=== PATIENT | male | born 1930 | race Caucasian/White ===

== ENCOUNTER 2018-02-15 21:33 | Inpatient (IN) | payer MEDICARE ==
[2018-02-15 23:12] LABS: Troponin I 0.232 ng/mL (< 0.028)
[2018-02-15] MEDS ORDERED: Piperacillin/Tazobactam 3.375 GM VIAL ONE (23:16)
[2018-02-15] MEDS ORDERED: Sodium Chloride 0.9% 100 ML ONE (23:16)
[2018-02-15 23:37] LABS: Lactic Acid 2.7 mmol/L (0.5-2.2)
[2018-02-15] MEDS ORDERED: Levofloxacin 500 mg/D5W 100 ml Premix Bag ONE (23:37)
--- NOTE | 2018-02-15 23:47 | RAD ---
RADIOGRAPH CHEST 1 VIEW RADIOGRAPH ABDOMEN 2 VIEWS: Date: 02/15/18 Time: 10:55 p.m. HISTORY: 88-year-old male with abnormal bowel sounds (high pitched). Pneumonia. UTI. Sepsis. COMPARISON: Recent chest radiograph of 02/15/18 at 7:15 p.m. No prior KUB. FINDINGS: The image technique of the earlier chest radiograph and the current one is very different. This makes comparison somewhat difficult. The air space density in the right lower lung zone appears somewhat m ore dense on the current study. Again noted is the left parahilar spiculated lesion. Left apical pleu ral thickening is unchanged. No cardiomegaly or pulmonary edema. Prominent interstitial markings in the left lower lung zone, acute versus chronic. Calcified pleural plaque at the lateral aspect of the left lower chest. Blunting of the left lateral costophrenic angle. No pneumothorax. Large amount of bowel gas throughout the entire abdomen, including colon and small intestine. Heavy a therosclerotic calcification of iliac arteries and femoral arteries. No evidence of organomegaly. No pneumoperitoneum identified. No definite dilated small bowel loops are identified. IMPRESSION: 1. Nonspecific bowel gas pattern with a large amount of bowel gas throughout the small intestine and colon. Perhaps ileus. 2. No convincing evidence of small bowel obstruction. 3. Right lower lung zone infiltrate could represent acute pneumonia or aspiration, and may have worsened. 4. Unilateral left calcified pleural plaque may represent sequelae of prior hemothorax or prior empyema. 5. Interstitial densities in left lower lung zone may be chronic. 6. Left parahilar spiculated pulmonary mass. RED [] POS: [facility]
[2018-02-16] MEDS ORDERED: Labetalol HCl 100 MG/20 ML VIAL SLOW IVP PRN (02:49)
[2018-02-16 02:51] VITALS: BMI 17.3
[2018-02-16 04:03] LABS: Troponin I 0.517 ng/mL (< 0.028)
[2018-02-16] MEDS ORDERED: Enoxaparin Sodium 60 MG/0.6 ML SYRINGE SC SCH (04:30)
[2018-02-16 05:53] LABS: Troponin I 0.555 ng/mL (< 0.028)
[2018-02-16] MEDS ORDERED: Bisacodyl 5 MG TAB PO PRN (06:44)
[2018-02-16] MEDS ORDERED: Ondansetron HCl/PF 4 MG/2 ML Vial IVP PRN (06:45)
[2018-02-16] MEDS ORDERED: Mag-Al 1200 mg/1200 mg/30 ML UDCUP PO PRN (06:45)
[2018-02-16] MEDS ORDERED: Loratadine 10 MG TAB PO PRN (06:45)
[2018-02-16] MEDS ORDERED: Senokot 8.6 MG TAB PO PRN (06:45)
[2018-02-16] MEDS ORDERED: Nitroglycerin 0.4 MG TAB (25 Tab Bottle) SL PRN (06:45)
[2018-02-16] MEDS ORDERED: Eucerin (Mineral Oil/Petrolatum,White) 30 gm Jar TOP PRN (06:45)
[2018-02-16] MEDS ORDERED: Diabetic Tussin 200 MG/10 ML UDCUP PO PRN (06:45)
[2018-02-16] MEDS ORDERED: Acetaminophen 325 MG TAB PO PRN (06:45)
[2018-02-16] MEDS ORDERED: Sodium Chloride 0.65% Nasal 44 ML BOT EA NARE PRN (06:45)
[2018-02-16] MEDS ORDERED: Artificial Tears 18 DROP/0.9 ML EA EYE PRN (06:45)
[2018-02-16] MEDS ORDERED: Milk Of Magnesia 30 ML UDCUP PO PRN (06:45)
[2018-02-16] MEDS ORDERED: hydrALAZINE 20 MG/ML VIAL SLOW IVP PRN (06:45)
[2018-02-16] MEDS ORDERED: Chloraseptic Spray 180 ml Bottle PO PRN (06:45)
[2018-02-16] MEDS ORDERED: Ondansetron ODT 4 MG TAB PO PRN (06:45)
[2018-02-16] MEDS ORDERED: Loperamide HCl 2 MG CAP PO PRN (06:45)
[2018-02-16] MEDS ORDERED: Aspirin 325 mg Enteric Coated Tablet PO SCH (09:00)
[2018-02-16] MEDS ORDERED: Metoprolol Tartrate 25 MG TAB PO SCH (09:00)
[2018-02-16] MEDS: Famotidine/PF 20 mg/2ml Vial SLOW IVP SCH (09:00)
--- NOTE | 2018-02-16 12:36 | HP ---
PRIMARY CARE PHYSICIAN: Lakshmi Patel M.D. REASON FOR ADMISSION: Aspiration pneumonia, demand ischemia of myocardium. HISTORY OF PRESENT ILLNESS: An 88-year-old male who lives at long-term. He has out of hospital DNR paper work at long-term. The patient was initially taken to [facility] for shortness of breath. At [facility], his initial blood pressure was 241/115. As per report from long-term, the patient had altered mental status since yesterday. The patient was having gurgling sound whenever he was breathing and his oxygen saturation was also low. At [facility], his saturation was 82 % on 2 liters oxygen. As per report, the patient had aspiration at long-term. Unfortunately, this patient is not able to provide any good history, so most likely history obtained from reviewing medical record. When I saw this patient today, he was afebrile. He was saturating with a 2.5 liters oxygen normal. He was hypertensive. He was able to communicate in mumbling pattern, so unable to understand well. His routine blood tests showed significantly abnormal troponin, even in the non-STEMI range. He had leukocytosis and lactic acidosis. PAST MEDICAL HISTORY: Hypertension; dyslipidemia; coronary artery disease; Alzheimer dementia; left carotid artery occlusion; protein-calorie malnutrition , moderate; history of cerebrovascular accident. PAST SURGICAL HISTORY: Right carotid endarterectomy, CABG in 2013. PAST PSYCHIATRY HISTORY: Reviewed and negative. SOCIAL HISTORY: The patient lives at long-term. He is a former smoker. He currently denies any tobacco, alcohol or illicit drug abuse. FAMILY HISTORY: As per previous report, the patient is from long-term. His nephew, Navdeep Mix, is medical power of trade mark attorney. No history of tobacco, alcohol or illicit drug abuse at this point. He is a previous smoker. ALLERGIES: CODEINE, ARICEPT. CURRENT HOME MEDICATIONS: Lipitor 20 mg p.o. daily, lisinopril 20 mg p.o. daily , metoprolol 50 mg p.o. b.i.d. EMERGENCY ROOM COURSE: The patient has received levofloxacin, Zosyn, vancomycin , and IV fluid. REVIEW OF SYSTEMS: All review of systems tried to review with the patient, but unable to review at this point because of altered mental status. PHYSICAL EXAMINATION: VITAL SIGNS: On arrival, blood pressure 147/84, pulse 96, respiratory rate 30, temperature 97.7, saturation 100% on 4 liters oxygen. GENERAL: The patient is currently alert, awake. Follows simple command. No obvious acute distress. HEAD: Normocephalic, atraumatic. EYES: Pupils round, reactive to light. Extraocular muscle intact. ENT: Oropharynx within normal limits. No pharyngeal erythema, no exudate. NECK: Supple, no JVD, no thyromegaly, no carotid bruit. LUNGS: Coarse breath sounds bilaterally. Air entry reduced basally. CARDIAC: S1, S2 appears regular. No murmur, no gallop, no rub. ABDOMEN: Soft, bowel sounds present, nontender, nondistended. No organomegaly , no mass, no suprapubic tenderness. BACK: Unremarkable, no CVA tenderness. EXTREMITIES: Upper extremity: Passive movement of all joints are normal. Lower extremities: No edema. Good distal pulsation. SKIN: No skin rash. HEMATOLOGICAL: No lymphadenopathy. NEUROLOGIC: The patient is hard of hearing, alert, oriented x2, moves all 4 limbs. No focal neurological deficit noted. SIGNIFICANT LABORATORY DATA: EKG showing first degree AV block, left atrial enlargement, nonspecific ST-T changes. X-ray abdomen showed nonspecific bowel gas pattern, right lower lobe infiltration. Calcified pleural plaque, left perihilar spiculated pulmonary mass. X-ray chest reported as spiculated mass in left hilar region. Interstitial opacity in right perihilar location consistent with aspiration pneumonia, pleural and parenchymal thickening. Recently, the patient had CT angiography which showed a 4 cm spiculated mass in left upper lobe, cholelithiasis. CBC: WBC 13.0, hemoglobin 16.7, platelet 288. BMP: Sodium 132, potassium 4.9 , chloride 94, carbon dioxide 28, anion gap 15, BUN 21, creatinine 1.03, glucose 116, calcium 9.7, lactic acid 1.6. LFT: AST 24, ALT 21, alkaline phosphatase 145, albumin 4.4, CK-MB 2.0. Troponin I 0.015, then 0.232 and then 0.517. Procalcitonin 0.27. Urinalysis unremarkable. ASSESSMENT AND PLAN: 1. Aspiration pneumonia. The patient had gurgling sound in his chest when he was breathing. He has wheezing, coarse breath sounds. His chest x-ray also supports right-sided interstitial opacity and right lower lobe infiltration. We will treat as aspiration pneumonia. We will start vancomycin, Zosyn, and levofloxacin. Probiotics with Florastor 250 mg p.o. daily, DuoNeb therapy q.6 hourly p.r.n. basis. 2. A 4 cm spiculated lung mass. This patient had CT angiography in 08/2016, at that time this was diagnosed. In the medical record, I could not see any consultation done for Pulmonary. Anyway, this patient is not a good candidate for any kind of surgical intervention. The patient will need consult with pulmonology before discharge. 3. Demand ischemia of myocardium. This patient does not have any chest pain. His troponin is gradually increasing. We will obtain echocardiography. Cardiology will be consulted. We will continue aspirin 325 mg p.o. daily, Lipitor 20 mg p.o. at bedtime, metoprolol 50 mg twice daily and lisinopril 20 mg p.o. daily. Further investigation will defer to Cardiology. 4. Hypertensive urgency, resolved. The patient's blood pressure was high at the [facility], currently blood pressure improved. 5. Lactic acidosis likely related with underlying infection. We will repeat lactic acid level tomorrow. 6. Dyslipidemia. Continue Lipitor 20 mg p.o. at bedtime and check lipid profile tomorrow morning. 7. Alzheimer dementia, supportive care. 8. Deep venous thrombosis prophylaxis, Lovenox 40 mg subcu daily. 9. Gastrointestinal prophylaxis, Pepcid 20 mg IV b.i.d. 10. Code status: The patient has out of hospital DNR. The patient wanted to continue DNR status 11. Oropharyngeal dysphagia. The patient is currently confused and that is why we will keep him n.p.o. and speech evaluation will be done. Based on speech therapy, we will start modify diet. Disposition plan based on clinical course. Once patient is stable at that point , we will discharge him back to assisted home. JAYSHREE
[2018-02-16] MEDS: Piperacillin/Tazobactam 3.375 GM in Sodium Chloride 0.9% 100 ML IVPB SCH ×3 (12:40→22:41)
[2018-02-16] MEDS: Lisinopril 10 MG TAB PO SCH (12:41)
[2018-02-16] MEDS: Metoprolol Tartrate 50 MG TAB PO SCH ×2 (12:42→20:59)
[2018-02-16] MEDS: Aspirin 325 mg Enteric Coated Tablet PO SCH (12:52)
--- NOTE | 2018-02-16 15:20 | CON ---
DATE OF CONSULTATION: 02/16/2018 PRIMARY DIETITIAN ASSISTANT: Dr. Adilson Alfonso. REASON FOR CONSULTATION: Elevated troponin. HISTORY OF PRESENT ILLNESS: Mr. Mix is a very pleasant 88-year-old white gentleman who comes to the hospital for aspiration pneumonia. He was admitted and started on IV antibiotics and troponins w ere drawn were mildly elevated, so Cardiology has been consulted for this. He does have a history of coronary artery disease with bypass in 2013, done by Dr. Suresh. He had a MARSHALL to a heavily calcifie d distal LAD, reverse vein graft to first diagonal, another vein to an OM1 and another vein to the PD A. He comes in for altered mentation for the last couple days and what was thought to be aspiration. He was brought to the ER and was found to have low saturations in the low 80s. He was started on I V Demadex and oxygen. He denies any chest pain, tightness, or pressure. PAST MEDICAL HISTORY: 1. Hypertension. 2. Hyperlipidemia. 3. Coronary artery disease. 4. Status post coronary artery bypass graft x4. 5. Alzheimer dementia. 6. Left carotid artery occlusion. 7. Protein calorie malnutrition. 8. CVA in the past. PAST SURGICAL HISTORY: 1. Right carotid endarterectomy. 2. CABG in 2013 as above. SOCIAL HISTORY: Lives at group home. Former smoker. No tobacco or drugs. FAMILY HISTORY: Noncontributory. OUTPATIENT MEDICATIONS: Include; 1. Lipitor 20 mg a day. 2. Lisinopril 20 mg. 3. Metoprolol 50 mg b.i.d. 4. Aspirin 81 a day. ALLERGIES: CODEINE and ARICEPT. REVIEW OF SYSTEMS: A 12-point review of systems was done and is all negative unless stated in the hi story of present illness. PHYSICAL EXAMINATION: VITAL SIGNS: Temperature 97.0, pulse 86, respiratory rate 19, satting 95% on 2-1/2 liters, blood pre ssure 164/78. GENERAL: Awake, alert, oriented x3, in no distress. HEENT: Normocephalic, atraumatic. NECK: Supple. LUNGS: Clear. CARDIOVASCULAR: S1, S2, no S3, S4, no murmurs or rubs. ABDOMEN: Soft, positive bowel sounds. EXTREMITIES: No edema. SKIN: Warm and dry. LABORATORY WORK: Reviewed. White count of 13, hemoglobin 16, hematocrit 52, platelet count 288. Ch emistries: Sodium 132, potassium 4.9, chloride of 94, carbon dioxide of 28, lactic acid was 1.6 init ially 2.7, troponin went from 0.01 to 0.23 to 0.51 to 0.55. Normal CK-MB. UA with 100 proteins, tra ce blood. EKG was reviewed, no ischemic changes. Acute abdominal series showed nonspecific bowel gas pattern with no evidence of small bowel obstructi on. ASSESSMENT: 1. Non-ST elevation myocardial infarction. Likely demand ischemia. He is asymptomatic from the car diac standpoint. 2. Possible aspiration pneumonia. 3. Normal LV function on echo in 2016. PLAN: 1. Most likely demand ischemia from his aspiration process. We will get an echocardiogram to evalua te LV function. 2. No invasive interventions planned at this time. He is DNR and he wishes to continue this way. E booker if he was having an AL, he does not want to have any invasive interventions. 3. I would not recommend any anticoagulation at this point as this is unlikely to be an acute holguin ry syndrome. Thank you for letting us participate in the care of your patient. We will follow.
[2018-02-16 20:10] LABS: Hemoglobin 14.3 g/dL (14.0-18.0); Platelet Count 263 thou/uL (130-400)
[2018-02-16] MEDS: Atorvastatin Calcium 20 MG TAB PO SCH (20:59)
--- NOTE | 2018-02-16 21:08 | CON ---
DATE OF CONSULTATION: 02/16/2018 HISTORY: Mr. Mix is an 88-year-old male who lives in a chcf. He apparently was referred for an abnormal chest radiograph. He lives in a fulltime care environment with dementia. Surprisingly, he is oriented to person, place and day when I evaluated him today. He answered questi ons very quickly, but really could not tell me why he was here. PAST MEDICAL HISTORY: Remarkable for hypertension, lipid disorder, coronary artery bypass grafting x 4, carotid disease, CVA in the past, carotid endarterectomy on the right and coronary artery bypass g rafting in 2012. SOCIAL HISTORY: He is a former smoker, nondrinker, does not use drugs. ALLERGIES: He has no drug allergies reported. FAMILY HISTORY: Negative for lung disease in early age. MEDICATIONS: Prior to admission, he was on Lipitor, lisinopril, metoprolol, aspirin. ALLERGIES: He reports allergies to CODEINE and Aricept. REVIEW OF SYSTEMS: A 10-point review of systems otherwise negative. He says he feels fine. PHYSICAL EXAMINATION: GENERAL: He is in no distress. VITAL SIGNS: He is afebrile. Blood pressure 164/78, respiratory rate 17, oximetry is 95% on 2 liter s. HEENT: Pupils react. Sclerae anicteric. Extraocular movements are full. NECK: Supple. LUNGS: Remarkable for crackles at his lung bases. HEART: Regular rhythm. ABDOMEN: Soft and nontender. EXTREMITIES: Without clubbing, cyanosis, or edema. Overall, he appears cachectic and weak. X-RAY FINDINGS: Chest radiograph shows pleural calcifications consistent with pleural plaques. He has findings suggestive of a lung mass on the left. It must be noted that last year, he had a lung mass seen on CT angiogram done with 09/01/2016 visit. This test was done as ordered by Dr. Page in [place]. It is unclear whether or not this has ev er been addressed. LABORATORY DATA: White count 13, hemoglobin 16.7, platelets 288. Sodium 132, potassium 4.7, chlorid e 94, bicarbonate 28, BUN 21, creatinine 1.03. IMPRESSION: 1. ? Aspiration. Chest radiograph does not show anything suggestive of pneumonia. 2. Lung mass. 3. Dementia. PLAN: I will be happy to follow with the other physicians caring for him. In my opinion, he probabl y is pretty close to his baseline. Surgical approach to the treatment of his lung mass would not be in his best interest in my opinion. There was no family available to discuss this with. Pulmonary consult is a 50-minute consult, 50% of the time was spent in the unit coordinating care.
[2018-02-16] MEDS ORDERED: Vancomycin HCl 750 MG in Sodium Chloride 0.9% 250 ML 250 ML IVPB SCH (23:00)
[2018-02-17] MEDS: Piperacillin/Tazobactam 3.375 GM in Sodium Chloride 0.9% 100 ML IVPB SCH ×3 (05:23→17:46)
[2018-02-17 05:42] LABS: #Eosinphils 0.1 thou/uL (0.0-0.7); #Lymphocytes 1.1 thou/uL (1.20-3.40); #Monocytes 1.1 thou/uL (0.11-0.59); #Neutrophils 11.2 thou/uL (1.40-6.50); %Basophils 0.2 % (0.0-1.0); %Eosinophils 0.7 % (0.0-10.0); %Lymphocytes 8.2 % (21.0-51.0); %Monocytes 8.2 % (0.0-10.0); %Neutrophils 82.8 % (42.0-75.0); Hemoglobin 14.4 g/dL (14.0-18.0); Mean Corpuscular HGB CONC 32.5 g/dL (32.0-36.0); Mean Corpuscular Hemoglobin 30.1 pg (27.0-31.0); Mean Corpuscular Volume 92.6 fL (78.0-98.0); Mean Platelet Volume 7.7 fL (7.4-10.4); Platelet Count 255 thou/uL (130-400); RBC Distribution Width 12.1 % (11.5-14.5); White Blood Cell (WBC) Count 13.5 thou/uL (4.8-10.8)
[2018-02-17 06:14] LABS: ALT (SGPT) 12 U/L (8-55); AST (SGOT) 22 U/L (5-34); Albumin 3.7 g/dL (3.4-4.8); Alkaline Phosphatase 83 U/L (40-150); Anion Gap 10 mmol/L (10-20); BUN (Urea Nitrogen) 17 mg/dL (8.4-25.7); Bilirubin, Total 0.9 mg/dL (0.2-1.2); Calc. Creatinine Clearance 42 mL/min (70-130); Carbon Dioxide 27 mmol/L (23-31); Cardiac Risk 3.2 (Less than 4.5); Chloride 97 mmol/L (98-107); Cholesterol 168 mg/dl (< 200 Desired); Estimated GFR-MDRD 77; Globulin 2.4 g/dL (2.4-3.5); Glucose 101 mg/dL (83-110); HDL Cholesterol 53 mg/dL (>60 Neg Risk); LDL Cholesterol, Calculated 101 mg/dL; Potassium 3.9 mmol/L (3.5-5.1); Protein, Total 6.1 g/dL (5.8-8.1); Sodium 130 mmol/L (136-145); Triglycerides 68 mg/dL (Less than 150)
[2018-02-17] MEDS: Docusate 100 MG CAP PO SCH (09:49)
[2018-02-17] MEDS: Metoprolol Tartrate 50 MG TAB PO SCH ×2 (09:49→21:16)
[2018-02-17] MEDS: Enoxaparin Sodium 40 MG/0.4 ML SYRINGE SC SCH (09:49)
[2018-02-17] MEDS: Famotidine/PF 20 mg/2ml Vial SLOW IVP SCH (09:49)
[2018-02-17] MEDS: Lisinopril 10 MG TAB PO SCH (09:49)
[2018-02-17] MEDS: Aspirin 325 mg Enteric Coated Tablet PO SCH (09:50)
[2018-02-17] MEDS: Sodium Chloride 0.9% 10 ML ONE ×3 (09:50→17:47)
--- NOTE | 2018-02-17 09:59 | PDOC.PN ---
- Subjective Encounter Start Date: 02/17/18 Encounter Start Time: 07:20 -: old records requested/rev Patient seen and examined. No new complaints. No overnight events pt is more alert and seems like at baseline - Objective Resuscitation Status: Resuscitation Status DNR:Do Not Resuscitate MAR Reviewed: Yes Vital Signs & Weight: Vital Signs (12 hours) Temp Pulse Resp BP BP Pulse Ox 02/17/18 09:49 142/69 H 02/17/18 07:45 98 F 78 16 142/69 H 96 02/17/18 04:00 97.9 F 72 18 146/88 H 97 02/16/18 23:30 97.3 F L 67 21 H 134/62 94 L Weight Admit Weight 121 lb Weight 119 lb 1.6 oz I&O: 02/16/18 02/17/18 02/18/18 06:59 06:59 06:59 Intake Total 1080 Output Total 125 Balance 955 Result Diagrams: 02/17/18 05:14 02/17/18 05:14 Radiology Reviewed by me: Yes (echo report reviewed) EKG Reviewed by me: Yes Phys Exam - Physical Examination Constitutional: NAD HEENT: PERRLA, moist MMs, sclera anicteric Neck: no JVD, supple Respiratory: no wheezing, no rales, no rhonchi coarse sound Cardiovascular: RRR, no rub Gastrointestinal: soft, non-tender, no distention, positive bowel sounds Musculoskeletal: no edema, pulses present Neurological: non-focal, moves all 4 limbs Lymphatic: no nodes Psychiatric: normal affect Skin: no rash, normal turgor Dx/Plan (1) Aspiration pneumonia Code(s): J69.0 - PNEUMONITIS DUE TO INHALATION OF FOOD AND VOMIT Status: Acute (2) Demand ischemia of myocardium Code(s): I24.8 - OTHER FORMS OF ACUTE ISCHEMIC HEART DISEASE Status: Acute (3) Lactic acidosis Code(s): E87.2 - ACIDOSIS Status: Acute (4) Alzheimer's dementia Code(s): G30.9 - ALZHEIMER'S DISEASE, UNSPECIFIED; F02.80 - DEMENTIA IN OTH DISEASES CLASSD ELSWHR W/O BEHAVRL DISTURB Status: Chronic (5) CAD (coronary artery disease) Code(s): I25.10 - ATHSCL HEART DISEASE OF [place] CORONARY ARTERY W/O ANG PCTRS Status: Chronic (6) Cholelithiases Code(s): K80.20 - CALCULUS OF GALLBLADDER W/O CHOLECYSTITIS W/O OBSTRUCTION Status: Chronic (7) Dyslipidemia Code(s): E78.5 - HYPERLIPIDEMIA, UNSPECIFIED Status: Chronic (8) H/O: CVA (cerebrovascular accident) Code(s): Z86.73 - PRSNL HX OF TIA (TIA), AND CEREB INFRC W/O RESID DEFICITS Status: Chronic (9) Hypertension Code(s): I10 - ESSENTIAL (PRIMARY) HYPERTENSION Status: Chronic (10) Left carotid artery occlusion Code(s): I65.22 - OCCLUSION AND STENOSIS OF LEFT CAROTID ARTERY Status: Chronic (11) Mass of upper lobe of left lung Code(s): R91.8 - OTHER NONSPECIFIC ABNORMAL FINDING OF LUNG FIELD Status: Chronic (12) Protein-calorie malnutrition, moderate Code(s): E44.0 - MODERATE PROTEIN-CALORIE MALNUTRITION Status: Chronic (13) Hyponatremia Code(s): E87.1 - HYPO-OSMOLALITY AND HYPONATREMIA Status: Acute - Plan cont current plan of care, continue antibiotics * continue vancomycin and zosyn and levaquin * pulmonary and cardiology recommendation appreciated * medication reviewed as below * symptomatic treatment * follow on culture. * expecting discharge on Monday Review of Systems - Review of Systems Other: not reliable due to his underlying advanced dementia - Medications/Allergies Allergies/Adverse Reactions: Allergies Allergy/AdvReac Type Severity Reaction Status Date / Time donepezil HCl [From Aricept] Allergy Verified 02/16/18 02:55 iodine Allergy Verified 02/16/18 02:55 codeine AdvReac Nausea Verified 02/16/18 02:55 iodine Allergy Uncoded 09/02/16 00:51 Medications: Current Medications Acetaminophen (Tylenol) 650 mg PO Q4H PRN PRN Reason: Headache/Fever or Pain Al Hydroxide/Mg Hydroxide (Maalox) 30 ml PO Q6H PRN PRN Reason: Heartburn or Indigestion Albuterol/Ipratropium (Duoneb) 3 ml NEB [id number] PRN PRN Reason: SOB &/or Wheezing Artificial Tears (Tears Naturale) 0 drop EA EYE PRN PRN PRN Reason: Dry Eyes Aspirin (Ecotrin) 325 mg PO DAILY TIA Last Admin: 02/17/18 09:50 Dose: 325 mg Atorvastatin Calcium (Lipitor) 20 mg PO HS [facility] Last Admin: 02/16/18 20:59 Dose: 20 mg Bisacodyl (Dulcolax) 10 mg PO DAILY PRN PRN Reason: Constipation Docusate Sodium (Colace) 100 mg PO DAILY [facility] Last Admin: 02/17/18 09:49 Dose: 100 mg Enoxaparin Sodium (Lovenox) 40 mg SC 0900 [facility] Last Admin: 02/17/18 09:49 Dose: 40 mg Famotidine (Pepcid) 20 mg SLOW IVP Q24HR [facility] Last Admin: 02/17/18 09:49 Dose: 20 mg Guaifenesin (Robitussin Sf) 200 mg PO Q4H PRN PRN Reason: Cough Hydralazine HCl (Apresoline) 10 mg SLOW IVP Q4H PRN PRN Reason: Systolic BP > 180 Piperacillin Sod/Tazobactam (Sod 3.375 gm/ Sodium Chloride) 100 mls @ 200 mls/ hr IVPB Q6HR [facility] Last Admin: 02/17/18 05:23 Dose: 100 mls Levofloxacin 500 mg/ Device 100 mls @ 100 mls/hr IVPB Q24HR [facility] Last Admin: 02/16/18 23:49 Dose: 100 mls Vancomycin HCl 750 mg/ Sodium (Chloride) 250 mls @ 250 mls/hr IVPB 2300 [facility] Last Admin: 02/16/18 22:41 Dose: 250 mls Labetalol HCl (Normodyne) 10 mg SLOW IVP Q4H PRN PRN Reason: SBP > 180 OR DBP > 100 Lisinopril (Zestril) 20 mg PO DAILY [facility] Last Admin: 02/17/18 09:49 Dose: 20 mg Loperamide HCl (Imodium) 2 mg PO PRN PRN PRN Reason: Diarrhea/Loose Stools Loratadine (Claritin) 10 mg PO DAILYPRN PRN PRN Reason: Sinus Symptoms Magnesium Hydroxide (Milk Of Magnesium) 30 ml PO DAILYPRN PRN PRN Reason: Constipation Metoprolol Tartrate (Lopressor) 50 mg PO BID [facility] Last Admin: 02/17/18 09:49 Dose: 50 mg Mineral Oil/White Petrolatum (Eucerin Cream) 0 gm TOP BIDPRN PRN PRN Reason: Dry Skin Miscellaneous Medication (Pharmacy To Dose) 1 each IVPB PRN PRN PRN Reason: Pharmacy to dose Nitroglycerin (Nitrostat) 0.4 mg SL Q5MIN PRN PRN Reason: Chest Pain Ondansetron HCl (Zofran Odt) 4 mg PO Q6H PRN PRN Reason: Nausea/Vomiting Ondansetron HCl (Zofran) 4 mg IVP Q6H PRN PRN Reason: Nausea/Vomiting Phenol (Chloraseptic [place] 180 Ml Bot) 0 ml PO PRN PRN PRN Reason: Sore Throat Senna (Senokot) 2 tab PO HSPRN PRN PRN Reason: Constipation Sodium Chloride ([place] Nasal [place] 0.65%) 0 ml EA NARE QIDPRN PRN PRN Reason: Nasal Congestion
[2018-02-17 10:41] LABS: Lactic Acid 1.4 mmol/L (0.5-2.2)
--- NOTE | 2018-02-17 16:10 | PDOC.CTH ---
Cardiology Progress Note - Subjective A little confused now needing a sitter 12/12. - Objective Vital Signs Temp Pulse Resp BP BP Pulse Ox 02/17/18 12:00 97.7 F 66 16 137/62 96 02/17/18 09:49 142/69 H 02/17/18 08:00 98 02/17/18 07:45 98 F 78 16 142/69 H 96 Admit Weight 121 lb Weight 119 lb 1.6 oz 02/16/18 02/17/18 02/18/18 06:59 06:59 06:59 Intake Total 1080 480 Output Total 125 Balance 955 480 - Physical Examination General/Neuro: NAD Neck: no JVD present Lungs: CTA, unlabored respirations Heart: RRR Abdomen: NT/ND Extremities: other: (No edema.) - Telemetry Telemetry Rhythm: NSR - Labs Result Diagrams: 02/17/18 05:14 02/17/18 05:14 Troponin/CKMB Troponin I 0.555 ng/mL (< 0.028) H* 02/16/18 04:24 - Assessment/Plan 1. NSTEMI, dmeand ischemia PLAN: - No intervention planned, likely demand. - Not interested in any invasive interventions. - breathing seems to be at baseline.
--- NOTE | 2018-02-17 20:53 | PRG ---
DATE OF SERVICE: 02/17/2018 SUBJECTIVE: Mr. Mix is in no distress. OBJECTIVE: GENERAL: He is not oriented to time, but he knows he is in the hospital. He is smiling, very pleasa nt. VITAL SIGNS: He is afebrile, heart rate 83, respiratory rate 15, oximetry is 95-96 on 2 liters, bloo d pressure 175/78 this afternoon, 137/62 earlier. LUNGS: Clear. HEART: Regular rhythm. ABDOMEN: Soft. LABORATORY DATA: White count 13.5, hemoglobin 14.4, platelets 255. Sodium 130, potassium 3.9, chlor carito 97, bicarbonate 27, BUN 10, creatinine 0.17. Microbiology: All cultures are negative. IMPRESSION: 1. Advanced dementia with cachexia. 2. Lung mass seen in 08/2016. I do not feel he is a candidate for any type of treatment of a malign alayna. Much lesser workup. 3. ?aspiration with no radiographic findings suggestive of pneumonia. I believe he is probably at his baseline.
[2018-02-17] MEDS: Atorvastatin Calcium 20 MG TAB PO SCH (21:16)
[2018-02-17] MEDS: Amoxicillin/Potassium Clav 875 MG TAB PO SCH (21:16)
[2018-02-17 22:26] LABS: Vancomycin, Trough 5.6 ug/mL
[2018-02-18] MEDS ORDERED: Lorazepam 2 MG/ML VIAL SLOW IVP SCH (01:15)
[2018-02-18] MEDS: Amoxicillin/Potassium Clav 875 MG TAB PO SCH ×2 (09:03→20:58)
[2018-02-18] MEDS: Famotidine/PF 20 mg/2ml Vial SLOW IVP SCH (09:04)
[2018-02-18] MEDS: Docusate 100 MG CAP PO SCH (09:04)
[2018-02-18] MEDS: Enoxaparin Sodium 40 MG/0.4 ML SYRINGE SC SCH (09:04)
[2018-02-18] MEDS: Aspirin 325 mg Enteric Coated Tablet PO SCH (09:04)
[2018-02-18] MEDS: Metoprolol Tartrate 50 MG TAB PO SCH ×2 (09:05→20:58)
[2018-02-18] MEDS: Lisinopril 10 MG TAB PO SCH (09:05)
--- NOTE | 2018-02-18 09:57 | PDOC.PN ---
- Subjective Encounter Start Date: 02/18/18 Encounter Start Time: 07:50 pt has very thick and yellow sputum with coughing, no fever Patient seen and examined. No overnight events - Objective Resuscitation Status: Resuscitation Status DNR:Do Not Resuscitate MAR Reviewed: Yes Vital Signs & Weight: Vital Signs (12 hours) Temp Pulse Resp BP BP Pulse Ox 02/18/18 09:05 168/75 H 02/18/18 08:00 96.2 F L 75 20 168/75 H 95 02/18/18 04:00 97.2 F L 84 20 179/90 H 96 02/18/18 00:00 97.4 F L 71 16 171/80 H 98 Weight Admit Weight 121 lb Weight 118 lb 8 oz I&O: 02/17/18 02/18/18 02/19/18 06:59 06:59 06:59 Intake Total 1080 1420 Output Total 125 600 Balance 955 820 Result Diagrams: 02/17/18 05:14 02/17/18 05:14 EKG Reviewed by me: Yes Phys Exam - Physical Examination Constitutional: NAD HEENT: PERRLA, moist MMs, sclera anicteric Neck: no JVD, supple Respiratory: no wheezing, no rales, no rhonchi coarse sound+ Cardiovascular: RRR, no significant murmur, no rub Gastrointestinal: soft, non-tender, no distention Musculoskeletal: no edema, pulses present Neurological: non-focal, normal sensation Lymphatic: no nodes Psychiatric: normal affect Skin: no rash, normal turgor Dx/Plan (1) Aspiration pneumonia Code(s): J69.0 - PNEUMONITIS DUE TO INHALATION OF FOOD AND VOMIT Status: Acute (2) Demand ischemia of myocardium Code(s): I24.8 - OTHER FORMS OF ACUTE ISCHEMIC HEART DISEASE Status: Acute (3) Lactic acidosis Code(s): E87.2 - ACIDOSIS Status: Acute (4) Alzheimer's dementia Code(s): G30.9 - ALZHEIMER'S DISEASE, UNSPECIFIED; F02.80 - DEMENTIA IN OTH DISEASES CLASSD ELSWHR W/O BEHAVRL DISTURB Status: Chronic (5) CAD (coronary artery disease) Code(s): I25.10 - ATHSCL HEART DISEASE OF [place] CORONARY ARTERY W/O ANG PCTRS Status: Chronic (6) Cholelithiases Code(s): K80.20 - CALCULUS OF GALLBLADDER W/O CHOLECYSTITIS W/O OBSTRUCTION Status: Chronic (7) Dyslipidemia Code(s): E78.5 - HYPERLIPIDEMIA, UNSPECIFIED Status: Chronic (8) H/O: CVA (cerebrovascular accident) Code(s): Z86.73 - PRSNL HX OF TIA (TIA), AND CEREB INFRC W/O RESID DEFICITS Status: Chronic (9) Hypertension Code(s): I10 - ESSENTIAL (PRIMARY) HYPERTENSION Status: Chronic (10) Left carotid artery occlusion Code(s): I65.22 - OCCLUSION AND STENOSIS OF LEFT CAROTID ARTERY Status: Chronic (11) Mass of upper lobe of left lung Code(s): R91.8 - OTHER NONSPECIFIC ABNORMAL FINDING OF LUNG FIELD Status: Chronic (12) Protein-calorie malnutrition, moderate Code(s): E44.0 - MODERATE PROTEIN-CALORIE MALNUTRITION Status: Chronic - Plan cont current plan of care, continue antibiotics * pt is not a candidate for any intervention for lung mass * he is not a candidate for any cardiac intervention for elevated troponin * continue augmentin today * expecting discharge to [facility] tomorrow * medication reviewed as below * symptomatic treatment * supportive care. Review of Systems - Review of Systems Other: not reliable due to his advanced dementia - Medications/Allergies Allergies/Adverse Reactions: Allergies Allergy/AdvReac Type Severity Reaction Status Date / Time donepezil HCl [From Aricept] Allergy Verified 02/16/18 02:55 iodine Allergy Verified 02/16/18 02:55 codeine AdvReac Nausea Verified 02/16/18 02:55 iodine Allergy Uncoded 09/02/16 00:51 Medications: Current Medications Acetaminophen (Tylenol) 650 mg PO Q4H PRN PRN Reason: Headache/Fever or Pain Al Hydroxide/Mg Hydroxide (Maalox) 30 ml PO Q6H PRN PRN Reason: Heartburn or Indigestion Albuterol/Ipratropium (Duoneb) 3 ml NEB [id number] PRN PRN Reason: SOB &/or Wheezing Amoxicillin/Clavulanate Potassium (Augmentin) 875 mg PO Q12HR TIA Stop: 02/23/18 23:59 Last Admin: 02/18/18 09:03 Dose: 875 mg Artificial Tears (Tears Naturale) 0 drop EA EYE PRN PRN PRN Reason: Dry Eyes Aspirin (Ecotrin) 325 mg PO DAILY [facility] Last Admin: 02/18/18 09:04 Dose: 325 mg Atorvastatin Calcium (Lipitor) 20 mg PO HS [facility] Last Admin: 02/17/18 21:16 Dose: 20 mg Bisacodyl (Dulcolax) 10 mg PO DAILY PRN PRN Reason: Constipation Docusate Sodium (Colace) 100 mg PO DAILY [facility] Last Admin: 02/18/18 09:04 Dose: 100 mg Enoxaparin Sodium (Lovenox) 40 mg SC 0900 [facility] Last Admin: 02/18/18 09:04 Dose: 40 mg Famotidine (Pepcid) 20 mg SLOW IVP Q24HR [facility] Last Admin: 02/18/18 09:04 Dose: 20 mg Guaifenesin (Robitussin Sf) 200 mg PO Q4H PRN PRN Reason: Cough Hydralazine HCl (Apresoline) 10 mg SLOW IVP Q4H PRN PRN Reason: Systolic BP > 180 Labetalol HCl (Normodyne) 10 mg SLOW IVP Q4H PRN PRN Reason: SBP > 180 OR DBP > 100 Lisinopril (Zestril) 20 mg PO DAILY [facility] Last Admin: 02/18/18 09:05 Dose: 20 mg Loperamide HCl (Imodium) 2 mg PO PRN PRN PRN Reason: Diarrhea/Loose Stools Loratadine (Claritin) 10 mg PO DAILYPRN PRN PRN Reason: Sinus Symptoms Magnesium Hydroxide (Milk Of Magnesium) 30 ml PO DAILYPRN PRN PRN Reason: Constipation Metoprolol Tartrate (Lopressor) 50 mg PO BID [facility] Last Admin: 02/18/18 09:05 Dose: 50 mg Mineral Oil/White Petrolatum (Eucerin Cream) 0 gm TOP BIDPRN PRN PRN Reason: Dry Skin Nitroglycerin (Nitrostat) 0.4 mg SL Q5MIN PRN PRN Reason: Chest Pain Ondansetron HCl (Zofran Odt) 4 mg PO Q6H PRN PRN Reason: Nausea/Vomiting Ondansetron HCl (Zofran) 4 mg IVP Q6H PRN PRN Reason: Nausea/Vomiting Phenol (Chloraseptic [place] 180 Ml Bot) 0 ml PO PRN PRN PRN Reason: Sore Throat Senna (Senokot) 2 tab PO HSPRN PRN PRN Reason: Constipation Sodium Chloride ([place] Nasal [place] 0.65%) 0 ml EA NARE QIDPRN PRN PRN Reason: Nasal Congestion Sodium Chloride (Flush - Normal Saline) 10 ml IVF PRN PRN PRN Reason: Saline Flush Last Admin: 02/18/18 09:06 Dose: 10 ml
--- NOTE | 2018-02-18 17:24 | PRG ---
DATE OF SERVICE: 02/17/2018 SUBJECTIVE: Dominguez is in no distress. PHYSICAL EXAMINATION: VITAL SIGNS: She is afebrile, heart rate 75, blood pressure 168/75, respiratory rate is 20, oximetry is 95% on 2 liters. LUNGS: Clear. HEART: Regular rhythm. ABDOMEN: Soft. LABORATORY DATA: No new lab. IMPRESSION: 1. Advanced dementia with cachexia. 2. Lung mass. 3. Aspiration with no clinical or radiographic findings suggestive of pneumonia. PLAN: Continued current p.o. antimicrobial therapy.
--- NOTE | 2018-02-18 18:16 | PDOC.CTH ---
Cardiology Progress Note - Subjective No new issues. Continues to be confused needing 24 hr sitter. - Objective Vital Signs Temp Pulse Resp BP BP Pulse Ox 02/18/18 12:00 96.2 F L 67 16 157/72 H 97 02/18/18 09:05 168/75 H 02/18/18 08:00 96.2 F L 75 20 168/75 H 95 Admit Weight 121 lb Weight 118 lb 8 oz 02/17/18 02/18/18 02/19/18 06:59 06:59 06:59 Intake Total 1080 1420 240 Output Total 125 600 Balance 955 820 240 - Physical Examination General/Neuro: NAD Neck: no JVD present Lungs: CTA, unlabored respirations Heart: RRR Abdomen: NT/ND Extremities: other: (no edema.) - Telemetry Telemetry Rhythm: NSR - Labs Result Diagrams: 02/17/18 05:14 02/17/18 05:14 Troponin/CKMB Troponin I 0.555 ng/mL (< 0.028) H* 02/16/18 04:24 - Assessment/Plan 1. NSTEMI, demand ischemia 2. Dementia PLAN: - No intervention planned, likely demand. - Not interested in any invasive interventions. - Breathing at baseline. - No new recs.
[2018-02-18] MEDS: Atorvastatin Calcium 20 MG TAB PO SCH (20:58)
[2018-02-19 05:31] LABS: #Basophils 0.1 thou/uL (0.0-0.2); #Eosinphils 0.5 thou/uL (0.0-0.7); #Lymphocytes 1.3 thou/uL (1.20-3.40); #Monocytes 1.4 thou/uL (0.11-0.59); #Neutrophils 7.6 thou/uL (1.40-6.50); %Basophils 0.5 % (0.0-1.0); %Eosinophils 4.6 % (0.0-10.0); %Lymphocytes 12.2 % (21.0-51.0); %Monocytes 13.1 % (0.0-10.0); %Neutrophils 69.6 % (42.0-75.0); Hemoglobin 14.8 g/dL (14.0-18.0); Mean Corpuscular HGB CONC 32.2 g/dL (32.0-36.0); Mean Corpuscular Hemoglobin 29.7 pg (27.0-31.0); Mean Platelet Volume 8.3 fL (7.4-10.4); Platelet Count 263 thou/uL (130-400); RBC Distribution Width 11.9 % (11.5-14.5); White Blood Cell (WBC) Count 10.9 thou/uL (4.8-10.8)
[2018-02-19 05:36] LABS: Anion Gap 12 mmol/L (10-20); BUN (Urea Nitrogen) 16 mg/dL (8.4-25.7); Calc. Creatinine Clearance 43 mL/min (70-130); Calcium 8.5 mg/dL (7.8-10.44); Carbon Dioxide 26 mmol/L (23-31); Chloride 98 mmol/L (98-107); Estimated GFR-MDRD Greater than 90; Glucose 82 mg/dL (83-110); Potassium 3.5 mmol/L (3.5-5.1); Sodium 132 mmol/L (136-145)
[2018-02-19] MEDS: Aspirin 325 mg Enteric Coated Tablet PO SCH (08:05)
[2018-02-19] MEDS: Amoxicillin/Potassium Clav 875 MG TAB PO SCH (08:05)
[2018-02-19] MEDS: Enoxaparin Sodium 40 MG/0.4 ML SYRINGE SC SCH (08:05)
[2018-02-19] MEDS: Metoprolol Tartrate 50 MG TAB PO SCH (08:05)
[2018-02-19] MEDS: Docusate 100 MG CAP PO SCH (08:05)
[2018-02-19] MEDS: Famotidine/PF 20 mg/2ml Vial SLOW IVP SCH (08:06)
[2018-02-19] MEDS: Lisinopril 10 MG TAB PO SCH (08:06)
--- NOTE | 2018-02-19 08:54 | PQF ---
CLINICAL DOCUMENTATION IMPROVEMENT CLARIFICATION FORM: ICD-10 Updated PLEASE DO AN ADDENDUM TO THE PROGRESS NOTE WITH ANY DOCUMENTATION UPDATES OR ADDITIONS AND CARRY THROUGH TO DC SUMMARY. THANK YOU. DATE: 02/19 ATTN: DR. KYARA YUSUF Please exercise your independent, professional judgment in responding to the clarification form. Clinical indicators are provided on the bottom of this form for your review. Please check appropriate box(es): [ x ] Sepsis due to: (Pna, UTI, gangrenous gall bladder, etc.) _aspiration pneumonia [ ] Localized infection without sepsis [ ] Other diagnosis [ ] Unable to determine For continuity of documentation, please document condition throughout progress notes and discharge summary. Thank You. CLINICAL INDICATORS - SIGNS / SYMPTOMS / LABS ER PRESENTATION 02/15: PT TRANSFER FROM [facility] FOR EVAL OF SEPSIS 2/2 ASPIRATION PNA; SEPSIS ALERT ACTIVATED; RR: 21-30 HR: 96 WBC: 13.0 LACTIC ACID: 2.7 ER TREATMENT: 1L NS, IV VANCOMYCIN & ZOSYN ER PHYSICIAN FINAL DIAGNOSES: SEPSIS, PNEUMONIA, UTI RISK FACTORS: ASPIRATION PNEUMONIA ADVANCED AGE (88) MODERATE PC MALNUTRITION TREATMENTS: IV ANTIBIOTICS (ZOSYN & VANCOMYCIN 02/15 - 02/18; LEVAQUIN 02/16) IVF (1L NS IN ER) THANK YOU! Sravani (This form is maintained as a part of the permanent medical record) 2014 [employer] All Rights Reserved Sravani Kearns RN, BSN [email or web address] Office: [phone] [facility] [place]
--- NOTE | 2018-02-19 10:02 | PDOC.PN ---
- Subjective Encounter Start Date: 02/19/18 Encounter Start Time: 07:30 Patient seen and examined. No new complaints. No overnight events - Objective Resuscitation Status: Resuscitation Status DNR:Do Not Resuscitate MAR Reviewed: Yes Vital Signs & Weight: Vital Signs (12 hours) Temp Pulse Resp BP BP Pulse Ox 02/19/18 08:06 163/68 H 02/19/18 08:00 97.7 F 71 17 163/68 H 97 02/19/18 07:33 95 02/19/18 04:00 97.5 F L 67 15 114/57 L 98 02/18/18 23:58 97.5 F L 66 16 153/71 H 96 Weight Admit Weight 121 lb Weight 106 lb 2 oz I&O: 02/18/18 02/19/18 02/20/18 06:59 06:59 06:59 Intake Total 1420 340 Output Total 600 250 Balance 820 90 Result Diagrams: 02/19/18 05:00 02/19/18 05:00 EKG Reviewed by me: Yes (nsr) Phys Exam - Physical Examination Constitutional: NAD HEENT: PERRLA, moist MMs, sclera anicteric Neck: no JVD, supple Respiratory: no wheezing, no rales, no rhonchi Cardiovascular: RRR, no significant murmur, no rub Gastrointestinal: soft, non-tender, no distention, positive bowel sounds Musculoskeletal: no edema, pulses present Neurological: non-focal, normal sensation Lymphatic: no nodes Psychiatric: normal affect Skin: no rash, normal turgor Dx/Plan (1) Aspiration pneumonia Code(s): J69.0 - PNEUMONITIS DUE TO INHALATION OF FOOD AND VOMIT Status: Acute (2) Demand ischemia of myocardium Code(s): I24.8 - OTHER FORMS OF ACUTE ISCHEMIC HEART DISEASE Status: Acute (3) Lactic acidosis Code(s): E87.2 - ACIDOSIS Status: Acute (4) Alzheimer's dementia Code(s): G30.9 - ALZHEIMER'S DISEASE, UNSPECIFIED; F02.80 - DEMENTIA IN OTH DISEASES CLASSD ELSWHR W/O BEHAVRL DISTURB Status: Chronic (5) CAD (coronary artery disease) Code(s): I25.10 - ATHSCL HEART DISEASE OF [place] CORONARY ARTERY W/O ANG PCTRS Status: Chronic (6) Cholelithiases Code(s): K80.20 - CALCULUS OF GALLBLADDER W/O CHOLECYSTITIS W/O OBSTRUCTION Status: Chronic (7) Dyslipidemia Code(s): E78.5 - HYPERLIPIDEMIA, UNSPECIFIED Status: Chronic (8) H/O: CVA (cerebrovascular accident) Code(s): Z86.73 - Status: Chronic (9) Hypertension Code(s): I10 - ESSENTIAL (PRIMARY) HYPERTENSION Status: Chronic (10) Left carotid artery occlusion Code(s): I65.22 - OCCLUSION AND STENOSIS OF LEFT CAROTID ARTERY Status: Chronic (11) Mass of upper lobe of left lung Code(s): R91.8 - OTHER NONSPECIFIC ABNORMAL FINDING OF LUNG FIELD Status: Chronic (12) Protein-calorie malnutrition, moderate Code(s): E44.0 - MODERATE PROTEIN-CALORIE MALNUTRITION Status: Chronic - Plan cont current plan of care, continue antibiotics * medication reviewed as below * symptomatic treatment * continue augmentin * will consider discharge to [facility] today. Review of Systems - Review of Systems Other: not reliable due to dementia - Medications/Allergies Allergies/Adverse Reactions: Allergies Allergy/AdvReac Type Severity Reaction Status Date / Time donepezil HCl [From Aricept] Allergy Verified 02/16/18 02:55 iodine Allergy Verified 02/16/18 02:55 codeine AdvReac Nausea Verified 02/16/18 02:55 iodine Allergy Uncoded 09/02/16 00:51 Medications: Current Medications Acetaminophen (Tylenol) 650 mg PO Q4H PRN PRN Reason: Headache/Fever or Pain Al Hydroxide/Mg Hydroxide (Maalox) 30 ml PO Q6H PRN PRN Reason: Heartburn or Indigestion Albuterol/Ipratropium (Duoneb) 3 ml NEB [id number] PRN PRN Reason: SOB &/or Wheezing Amoxicillin/Clavulanate Potassium (Augmentin) 875 mg PO Q12HR TIA Stop: 02/23/18 23:59 Last Admin: 02/19/18 08:05 Dose: 875 mg Artificial Tears (Tears Naturale) 0 drop EA EYE PRN PRN PRN Reason: Dry Eyes Aspirin (Ecotrin) 325 mg PO DAILY [facility] Last Admin: 02/19/18 08:05 Dose: 325 mg Atorvastatin Calcium (Lipitor) 20 mg PO HS [facility] Last Admin: 02/18/18 20:58 Dose: 20 mg Bisacodyl (Dulcolax) 10 mg PO DAILY PRN PRN Reason: Constipation Docusate Sodium (Colace) 100 mg PO DAILY [facility] Last Admin: 02/19/18 08:05 Dose: 100 mg Enoxaparin Sodium (Lovenox) 40 mg SC 0900 [facility] Last Admin: 02/19/18 08:05 Dose: 40 mg Famotidine (Pepcid) 20 mg SLOW IVP Q24HR [facility] Last Admin: 02/19/18 08:06 Dose: 20 mg Guaifenesin (Robitussin Sf) 200 mg PO Q4H PRN PRN Reason: Cough Hydralazine HCl (Apresoline) 10 mg SLOW IVP Q4H PRN PRN Reason: Systolic BP > 180 Labetalol HCl (Normodyne) 10 mg SLOW IVP Q4H PRN PRN Reason: SBP > 180 OR DBP > 100 Lisinopril (Zestril) 20 mg PO DAILY [facility] Last Admin: 02/19/18 08:06 Dose: 20 mg Loperamide HCl (Imodium) 2 mg PO PRN PRN PRN Reason: Diarrhea/Loose Stools Loratadine (Claritin) 10 mg PO DAILYPRN PRN PRN Reason: Sinus Symptoms Magnesium Hydroxide (Milk Of Magnesium) 30 ml PO DAILYPRN PRN PRN Reason: Constipation Metoprolol Tartrate (Lopressor) 50 mg PO BID [facility] Last Admin: 02/19/18 08:05 Dose: 50 mg Mineral Oil/White Petrolatum (Eucerin Cream) 0 gm TOP BIDPRN PRN PRN Reason: Dry Skin Nitroglycerin (Nitrostat) 0.4 mg SL Q5MIN PRN PRN Reason: Chest Pain Ondansetron HCl (Zofran Odt) 4 mg PO Q6H PRN PRN Reason: Nausea/Vomiting Ondansetron HCl (Zofran) 4 mg IVP Q6H PRN PRN Reason: Nausea/Vomiting Phenol (Chloraseptic [place] 180 Ml Bot) 0 ml PO PRN PRN PRN Reason: Sore Throat Senna (Senokot) 2 tab PO HSPRN PRN PRN Reason: Constipation Sodium Chloride ([place] Nasal [place] 0.65%) 0 ml EA NARE QIDPRN PRN PRN Reason: Nasal Congestion Sodium Chloride (Flush - Normal Saline) 10 ml IVF PRN PRN PRN Reason: Saline Flush Last Admin: 02/18/18 20:58 Dose: 10 ml
--- NOTE | 2018-02-19 11:30 | DIS ---
DATE OF ADMISSION: 02/15/2018 DATE OF DISCHARGE: 02/19/2018 PRIMARY CARE PHYSICIAN: Lakshmi Patel M.D. DISCHARGE DISPOSITION: long-term home. PRIMARY DISCHARGE DIAGNOSES: Sepsis due to aspiration pneumonia; lactic acidosis, improved; demand i schemia of myocardium and hyponatremia. 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 PRIMARY PROCEDURE/OPERATION: None. RADIOLOGICAL INVESTIGATION: Echocardiography showed EF 60%. Chest x-ray showed no acute process. SIGNIFICANT LABORATORY DATA: WBC 10.9, hemoglobin 14.8, platelet 263,000. Sodium 132, potassium 3.5 , BUN 16, creatinine 0.79, calcium 8.5. LFT normal. Troponin 0.555, LDL 101. Blood culture negativ e. DISCHARGE MEDICATIONS: Aspirin 325 mg p.o. daily, Lipitor 20 mg p.o. daily, Colace 100 mg p.o. daily , lisinopril 20 mg p.o. daily, metoprolol 50 mg p.o. daily, Augmentin 875 mg twice daily for 5 days, Florastor 250 mg p.o. daily for 5 days. CONTRAINDICATIONS: None. CODE STATUS: DNR. INPATIENT CONSULTANTS: Dr. Hernandez was following for a spiculated lung mass. Dr. Naik was consulted for elevated troponin. TEST RESULTS PENDING ON DISCHARGE: None. ALLERGIES: ARICEPT, IODINE and CODEINE. DISCHARGE PLAN: Post hospital, the patient is discharged back to long term home. Subsequently , the patient will follow up with primary care physician. The patient will follow up with Cardiology and Dr. Hernandez as instructed. HOSPITAL COURSE: An 88-year-old male who was admitted by me. Please see my HPI for further details. [facility]. He had episode of aspiration and subsequently he was having cou gh. He was also having some low-grade fever. We suspected aspiration pneumonia. On admission, he w as hypoxic, saturation 82% on 2 liters oxygen. He also had significantly abnormal troponin. The [facility] was admitted to the hospital. He was treated empirically with vancomycin and Zosyn. Subsequent ly, we changed to Augmentin. Cardiology was consulted and we did echocardiography, which showed norm al EF. The patient was not interested in going for any kind of further intervention from cardiac per spective. This patient also has previous left upper lobe spiculated lung mass and that is why Pulmon ology was following while in hospital. Based on overall patient's condition, he is not a candidate f or any kind of treatment or any kind of intervention or procedure and that is why investigation was n ot done at this time. The patient will follow up with Pulmonology as well as Cardiology as an outpat ient basis. The patient will need oxygen at [facility] as needed basis. He will need DuoNeb therapy as needed basis. The patient is seen and examined at bedside today. Please see my progress note from today for furthe r detail. Paper work for discharge done. Discharge medication reconciliation done. Total time spent on discharge, 31 minutes.
[2018-02-19 12:10] VITALS: BP 166/64; TEMP 97.2
== END 2018-02-19 12:20 | DRG 871 ==
LOC: ERS 21:33 → 2NO 23:55
PROVIDERS: ADMIT Hospitalist; ATTEND Hospitalist
DX: A41.9 Sepsis, unspecified organism (principal); J69.0 Pneumonitis due to inhalation of food and vomit; I24.8 Other forms of acute ischemic heart disease; R64 Cachexia; E87.1 Hypo-osmolality and hyponatremia; E44.0 Moderate protein-calorie malnutrition; Z68.1 Body mass index [BMI] 19.9 or less, adult; E78.5 Hyperlipidemia, unspecified; I25.10 Atherosclerotic heart disease of native coronary artery without angina pectoris; G30.9 Alzheimer's disease, unspecified; F02.80 Dementia in other diseases classified elsewhere, unspecified severity, without behavioral disturbance, psychotic disturbance, mood disturbance, and anxiety; Z86.73 Personal history of transient ischemic attack (TIA), and cerebral infarction without residual deficits; Z87.891 Personal history of nicotine dependence; I16.0 Hypertensive urgency; Z66 Do not resuscitate; R13.12 Dysphagia, oropharyngeal phase; R91.8 Other nonspecific abnormal finding of lung field; H90.5 Unspecified sensorineural hearing loss; R09.02 Hypoxemia; Z95.1 Presence of aortocoronary bypass graft; K80.20 Calculus of gallbladder without cholecystitis without obstruction
CPT/HCPCS: 36415; 74022; 80048; 80053; 80061; 80202; 82565; 83605; 84145; 84484; 85014; 85018; 85025; 85049; 93005; 93306; 94760; A4216; G8996-GN-CM; G8997-GN-CM; J1650; J1956; J2060; J2543; J3370; J7050; Q0162; S0028